=== PATIENT | male | born 1935 | race Caucasian/White ===

== ENCOUNTER 2019-02-14 07:05 | Emergency (ER) | payer MEDICARE, BC ==
[~2019-02-14] VITALS: Ht 170.2 cm; Wt 90.9 kg
[2019-02-14] MEDS ORDERED: furosemide 40mg/4ml inj IV ONE (07:15)
--- NOTE | 2019-02-14 07:21 | NUR ---
RT STANDING BY WHILE ER EXAMINES PT AND A BIPAP IS REQUESTED. RT IN ROOM NOW APPLYING BIPAP.
--- NOTE | 2019-02-14 08:21 | NUR ---
SEVERAL ATTEMPTS TO START IV AND DRAW BLOOD HAVE FAILED. NOTIFY CHARGE NURSE WHO WILL TRY.
--- NOTE | 2019-02-14 09:20 | NUR ---
DR ORO IN ROOM TO ATTEMPT AN IV ACCESS AFTER SEVERAL ATTEMPTS BY TWO NURSES. DARNELL IN ROOM TO ASSIST HOLDING PTS ARM.
--- NOTE | 2019-02-14 09:48 | NUR ---
PICC LINE NURSE IN ROOM TO ESTABLISH AN EXTENDED IV IN RIGHT FOREARM AND BLOOD DRAW.
[2019-02-14 10:01] LABS: BASOPHILS % (AUTO) 0.3 % (0-1); EOSINOPHILS # (AUTO) 0.1 X10'3 (0-0.9); HEMATOCRIT 41.1 % (42.0-52.0); HEMOGLOBIN 13.6 g/dl (14.0-17.9); LYMPHOCYTES # (AUTO) 1.1 X10'3 (1.1-4.8); LYMPHOCYTES % (AUTO) 11.6 % (21-51); MEAN CORPUSCULAR HEMOGLOBIN 33.2 PG (27.0-31.0); MEAN CORPUSCULAR HGB CONC 33.2 g/dL (33.0-36.5); MEAN CORPUSCULAR VOLUME 99.8 FL (78-98); MEAN PLATELET VOLUME 7.7 FL (7.4-10.4); MONOCYTES # (AUTO) 0.8 X10'3 (0-0.9); MONOCYTES % (AUTO) 8.2 % (2-12); NEUTROPHILS # (AUTO) 7.6 X10'3 (1.8-7.7); NEUTROPHILS % (AUTO) 78.9 % (42-75); PLATELET COUNT 169 X10'3 (140-440); RED BLOOD COUNT 4.11 X10'6 (4.70-6.10); RED CELL DISTRIBUTION WIDTH 13.7 % (11.5-14.5); WHITE BLOOD COUNT 9.7 X10'3 (4.5-11.0)
[2019-02-14 10:14] LABS: ALANINE AMINOTRANSFERASE 24 U/L (12-78); ALBUMIN/GLOBULIN RATIO 0.8 (1.1-1.5); ALKALINE PHOSPHATASE 71 IU/L (46-116); ANION GAP 2 (8-16); BILIRUBIN,TOTAL 0.6 MG/DL (0.1-1.0); BLOOD UREA NITROGEN 22 MG/DL (7-18); BUN/CREATININE RATIO 14.4 (5.4-32.0); CALCIUM 8.1 MG/DL (8.5-10.1); CHLORIDE 107 MMOL/L (99-107); CREATININE 1.53 MG/DL (0.60-1.10); GLUCOSE 120 MG/DL (70-104); SODIUM 145 MMOL/L (135-145); TOTAL CARBON DIOXIDE 36.5 MMOL/L (24-32); eGFR 43 ML/MIN
[2019-02-14 10:25] LABS: ASPARTATE AMINO TRANSFERASE 32 U/L (10-37); POTASSIUM 4.9 MMOL/L (3.5-5.1)
[2019-02-14 11:23] LABS: CLARITY,URINE SLIGHTLY CLOUDY (Clear); COLOR,URINE YELLOW (Yellow); GLUCOSE, URINE NEGATIVE (Neg); KETONES,URINE NEGATIVE (Neg); LEUKOCYTE ESTERASE ,URINE SMALL (Neg); NITRITES, URINE NEGATIVE (Neg); OCCULT BLOOD,URINE LARGE (Neg); PROTEIN,URINE 30 mg/dl (Neg); UROBILINOGEN,URINE 0.2 E.U/dL (0.2-1.0)
[2019-02-14 11:27] LABS: UA COLLECTION TYPE VOIDED
[2019-02-14 11:29] LABS: BACTERIA,URINE FEW /HPF (Neg); RBC,URINE TNTC /HPF (0-2)
[2019-02-14 11:30] LABS: MUCUS STRANDS NONE SEEN /LPF (Neg); SQUAMOUS EPITHELIAL CELL,UR FEW /LPF (FEW)
--- NOTE | 2019-02-14 11:41 | NUR ---
RT REMOVES THE BIPAP, PT FEELING BETTER, SATS NOW 88%, APPLY OXYGEN ONE LITER.
[2019-02-14 12:34] VITALS: BP 131/56
[2019-02-15] MEDS ORDERED: CefTRIAXone 2gm/D5W 50ml 50 ML IV SCH (08:00)
== END 2019-02-14 14:38 | disposition home or self-care (01) ==
LOC: ER 07:07
DX: S29.8XXA Other specified injuries of thorax, initial encounter (principal); I50.9 Heart failure, unspecified; V49.88XA Car occupant (driver) (passenger) injured in other specified transport accidents, initial encounter; Y93.89 Activity, other specified; Y92.89 Other specified places as the place of occurrence of the external cause; Y99.9 Unspecified external cause status
CPT/HCPCS: 36415; 71045; 71250; 76937; 80053; 81001; 83880; 84484; 85025; 87088; 93005; 94660; 96374; 99284; J1940; 94760